=== PATIENT | male | born 1980 | race Caucasian/White ===

== ENCOUNTER 2020-07-02 21:34 | Emergency (ER) | payer OTHER ==
[~2020-07-02] VITALS: Ht 188 cm; Wt 81.7 kg
[2020-07-02 21:36] VITALS: BP 141/92
[2020-07-02] MEDS ORDERED: DOXYCYCLINE 10100 MG PO (21:58)
== END 2020-07-02 22:08 | disposition home or self-care (01) ==
LOC: ER 21:34
DX: L03.113 Cellulitis of right upper limb (principal); R23.8 Other skin changes; Z88.8 Allergy status to other drugs, medicaments and biological substances